=== PATIENT | female | born 1980 | race Caucasian/White ===

== ENCOUNTER → 2016-05-12 | Outpatient (CLI) | payer BC, OTHER | LOC: LAB 14:16 | DX: E22.1 Hyperprolactinemia (principal) | CPT/HCPCS: 36415; 84146 ==

== ENCOUNTER → 2016-06-09 | Outpatient (CLI) | payer BC, OTHER | LOC: LAB 15:18 | DX: E22.1 Hyperprolactinemia (principal) | CPT/HCPCS: 36415; 84146 ==

== ENCOUNTER → 2016-08-14 | Outpatient (CLI) | payer BC, OTHER | LOC: LAB 16:06 | DX: E22.1 Hyperprolactinemia (principal) | CPT/HCPCS: 36415; 84146 ==